=== PATIENT | female | born 1980 | race Caucasian/White ===

== ENCOUNTER 2020-10-23 04:49 | Inpatient (IN) | payer OTHER ==
[2020-10-21 16:57] VITALS: BMI 25.4
[2020-10-23] MEDS ORDERED: BUPIVACAINE HCL 100 ML ONE (08:44)
[2020-10-23] MEDS ORDERED: BUPIVACAINE LIPOSOME/PF (EXPAREL) 266 MG/20 ML VIAL ONE (08:44)
[2020-10-23] MEDS ORDERED: ROCURONIUM BROMIDE 50 MG/5 ML SYRINGE ONE (13:23)
[2020-10-23] MEDS ORDERED: PROPOFOL 20 ML ONE ×2 (13:23)
[2020-10-23] MEDS ORDERED: SUCCINYLCHOLINE CHLORIDE 200 MG/10 ML SYRINGE ONE (13:23)
[2020-10-23] MEDS ORDERED: fentaNYL CITRATE 250 MCG/5 ML VIAL ONE (13:23)
[2020-10-23] MEDS ORDERED: VASOPRESSIN 20 UNITS/ML VIAL IV ONE (13:33)
[2020-10-23] MEDS ORDERED: MIDAZOLAM HCL 2 MG/2 ML SINGLE DOSE VIAL ONE ×2 (13:34)
[2020-10-23] MEDS ORDERED: HEPARIN NA (PORCINE) 5,000 UNITS/ML 1ML VIAL ONE (13:38)
[2020-10-23] MEDS ORDERED: ceFAZolin 2 GRAM PREMIX BAG IVPB ONE (14:25)
[2020-10-23] MEDS ORDERED: oxyCODONE HCL 5 MG TABLET PO PRN ×3 (15:49→17:10)
[2020-10-23] MEDS ORDERED: ONDANSETRON 4 MG/2 ML VIAL IVPUSH PRN ×2 (15:49→17:10)
[2020-10-23] MEDS ORDERED: PROMETHAZINE HCL 25 MG/1 ML VIAL IVPUSH PRN ×2 (15:49→17:10)
[2020-10-23] MEDS ORDERED: NEOSTIGMINE METHYLSULFATE 0.5 MG/ML - 10 ML MDV ONE (15:57)
[2020-10-23] MEDS ORDERED: IBUPROFEN 800 MG/8 ML IJ IVPB PRN (16:37)
[2020-10-23] MEDS ORDERED: DOCUSATE SODIUM 100 MG CAPSULE (FP) PO PRN ×2 (16:37→17:10)
[2020-10-23] MEDS ORDERED: SIMETHICONE 80 MG TAB.CHEW (FP) PO PRN ×2 (16:37→17:10)
[2020-10-23] MEDS ORDERED: BISACODYL 5 MG TABLET.DR (FP) PO PRN ×2 (16:37→17:10)
[2020-10-23] MEDS ORDERED: ACETAMINOPHEN 1000 MG/100 ML VIAL (NON FORMULARY) IVPB PRN (16:37)
[2020-10-23] MEDS ORDERED: SODIUM CHLORIDE 1,000 ML IV SCH ×2 (16:45→17:10)
[2020-10-23] MEDS ORDERED: KETOROLAC TROMETHAMINE 30 MG/1 ML VIAL ONE (16:49)
[2020-10-23] MEDS ORDERED: ACETAMINOPHEN INJECTION 100 ML IVPB ONE (16:49)
[2020-10-23] MEDS: ACETAMINOPHEN 1000 MG/100 ML VIAL (NON FORMULARY) IVPB SCH ×2 (17:00→22:45)
[2020-10-23] MEDS ORDERED: HYDROmorphone HCl 2 MG/ML VIAL ONE (19:17)
[2020-10-23] MEDS ORDERED: HYDROmorphone HCl 2 MG/ML VIAL IVPUSH ONE (19:17)
[2020-10-23] MEDS ORDERED: CEFAZOLIN 1 GM/D5W 1 GM/50 ML BAG IVPB SCH (20:30)
[2020-10-23] MEDS: CEFAZOLIN 1 GM/D5W 1 GM/50 ML BAG IVPB SCH (22:14)
[2020-10-24] MEDS: IBUPROFEN 800 MG/8 ML IJ IVPB SCH ×2 (00:43→09:58)
[2020-10-24] MEDS: ACETAMINOPHEN 1000 MG/100 ML VIAL (NON FORMULARY) IVPB SCH ×2 (05:26→11:17)
[2020-10-24] MEDS: CEFAZOLIN 1 GM/D5W 1 GM/50 ML BAG IVPB SCH (06:31)
[2020-10-24 08:47] VITALS: BP 92/56; PULSE 72; TEMP 98.2
[2020-10-24 08:50] LABS: HEMATOCRIT 33.5 % (32.4-45.2); HEMOGLOBIN 11.2 GM/dL (10.7-15.3); MCH 29.2 pg (25.7-33.7); MCHC 33.3 g/dl (32.0-36.0); MEAN CELL VOLUME 87.5 fl (80-96); MEAN PLT VOLUME 9.8 fl (7.5-11.1); PLATELET COUNT 172 10^3/uL (134-434); RBC 3.83 M/mm3 (3.60-5.2); RDW 13.6 % (11.6-15.6); WHITE BLOOD COUNT 11.5 K/mm3 (4.0-10.0)
[2020-10-24 09:05] LABS: BLOOD UREA NITROGEN 7.4 mg/dL (7-18)
[2020-10-24 09:09] LABS: CREATININE 0.7 mg/dL (0.55-1.3)
[2020-10-24 09:24] LABS: CALCIUM 7.4 mg/dL (8.5-10.1)
[2020-10-24] MEDS ORDERED: ENOXAPARIN NA (PORCINE) 40 MG/0.4 ML DISP.SYRIN SQ SCH (10:00)
[2020-10-25] MEDS ORDERED: ACETAMINOPHEN 500 MG TABLET (FP) PO PRN ×2 (08:00)
[2020-10-25] MEDS ORDERED: IBUPROFEN 600 MG TABLET (FP) PO PRN ×2 (08:00)
== END 2020-10-24 13:50 | disposition home or self-care (01) | DRG 743 ==
LOC: J2C 04:49 → J3W 20:23
PROVIDERS: ADMIT Specialist; ATTEND Specialist
PROC: 0DNW0ZZ Release Peritoneum, Open Approach (ICD-10-PCS; 2020-10-23)
PROC: 0UB90ZZ Excision of Uterus, Open Approach (ICD-10-PCS; principal; 2020-10-23 14:00)
DX: D25.9 Leiomyoma of uterus, unspecified (principal); R10.2 Pelvic and perineal pain; N92.0 Excessive and frequent menstruation with regular cycle; E66.3 Overweight; Z68.29 Body mass index [BMI] 29.0-29.9, adult; K66.0 Peritoneal adhesions (postprocedural) (postinfection)
CPT/HCPCS: 36415; 80048; 84703; 85027; 86850; 86900; 86901; 86922; 88305-TC; 94010; 94760; J0131; J1644